=== PATIENT | female | born 1990 | race Hispanic/Latino ===

== ENCOUNTER 2023-10-15 18:17 | Emergency (ER) | payer SELFPAY | END 2023-10-15 19:45 | disposition home or self-care (01) | LOC: CSHERS 18:17 | DX: L03.032 Cellulitis of left toe (principal); E11.9 Type 2 diabetes mellitus without complications | CPT/HCPCS: 99283 ==

== ENCOUNTER 2025-03-21 13:51 | Emergency (ER) | payer SELFPAY ==
[2025-03-21] MEDS ORDERED: Dexamethasone 10 MG/ML VIAL ONE (14:28)
[2025-03-21] MEDS ORDERED: diphenhydrAMINE 25 MG CAP ONE (14:28)
[2025-03-21] MEDS ORDERED: Famotidine 20 MG TAB ONE (14:30)
== END 2025-03-21 16:27 | disposition home or self-care (01) ==
LOC: CSHERS 13:51
DX: T78.19XA Other adverse food reactions, not elsewhere classified, initial encounter (principal); E11.9 Type 2 diabetes mellitus without complications; E78.5 Hyperlipidemia, unspecified
CPT/HCPCS: 99283; J1100